=== PATIENT | male | born 1950 | race Caucasian/White ===

== ENCOUNTER → 2017-08-24 | Day surgery (SDC) | payer MEDICARE ==
[~2017-08-24] VITALS: Ht 175.3 cm; Wt 86.5 kg
[~2017-08-24] MED LIST: *RESP: ALBUTEROL 2.5 MG/3 ML NEB (PRN) PERIprocedural Use ONLY NEB ONE; *morphine SULFATE 8 MG/ML PERIprocedure ONLY ONE; ACETAMINOPHEN/HYDROcodone 325 MG/5 MG TAB PO PRN; BACITRACIN TOP OINT 15 GM TUBE ONE; CHLORHEXIDINE GLUCONATE 2 % 1 PACK (2 CLOTHS) TOPICAL PRN; DEXAMETHASONE SOD PHOS 4 MG/ML VIAL IV ONE; DO NOT ADM ANY ANTICOAGULANT DRUGS PRN; ESMOLOL HCL 100 MG/10 ML VIAL IV ONE; GLYCOPYRROLATE 1 MG/5 ML SYRINGE IV PUSH ONE; LACTATED RINGER'S 1000 ML IV PRN; LIDOCAINE 1%/EPINEPHrine 1:100,000 SOLN 20 ML VIAL ONE; LIDOCAINE HCL 1% PF 5 ML SYRINGE OTHER ONE; METOPROLOL TARTRATE 25 MG TAB PO PRN; MIDAZOLAM HCL 2 MG/2 ML VIAL IV ONE; NEOSTIGMINE 5 MG/5 ML SYRINGE IV PUSH ONE; ONDANSETRON HCL 4 MG/2 ML VIAL IV PUSH ONE; POVIDONE IODINE 5% (ANTISEPSIS KIT) 4 APPLICATIONS EACH NARE PRN; PROPOFOL 200 MG/20 ML AMP IV ONE; ROCURONIUM INJ 50 MG/5 ML SYRINGE IV PUSH ONE; SIMV20TA PO; SODIUM CHLOR 0.9% 1000 ML INJ 1,000 ML IV ONE; SODIUM CHLORID 0.9% 500 ML IV PRN; TRAM50TA PO; VALS1TAB64 PO
[2017-08-24 13:42] LABS: AUTOMATED NEUTROPHIL # 6.5 TH/MM3 (1.8-7.7); BASOPHIL # 0.1 TH/MM3 (0-0.2); BASOPHIL % 0.6 % (0.0-2.0); EOSINOPHIL # 0.1 TH/MM3 (0-0.4); HEMATOCRIT 37.1 % (39.0-51.0); HEMO FLAGS DIFF FINAL; LYMPH % 16.3 % (9.0-44.0); LYMPHOCYTE # 1.4 TH/MM3 (1.0-4.8); MEAN CELL VOLUME 79.8 FL (80.0-100.0); MEAN CORPUSCULAR HEMOGLOBIN 25.8 PG (27.0-34.0); MEAN CORPUSCULAR HGB CONC 32.4 % (32.0-36.0); MONO % 6.8 % (0.0-8.0); NEUT % 75.3 % (16.0-70.0); PLATELET COUNT 300 TH/MM3 (150-450); RED BLOOD COUNT 4.65 MIL/MM3 (4.50-5.90); RED CELL DISTRIBUTION WIDTH 16.4 % (11.6-17.2); WHITE BLOOD COUNT 8.6 TH/MM3 (4.0-11.0)
--- NOTE | 2017-08-24 15:18 | EKG ---
Date Performed: 08/24/2017 Time Performed: 13:19:45 PTAGE: 67 years EKG: Sinus rhythm NORMAL ECG NO PREVIOUS TRACING DOCTOR: Mckinley Oneil Interpretating Date/Time 08/24/2017 15:18:04
[2017-08-24 18:19] VITALS: BP 118/71; PULSE 66; RESP 16; TEMP 97.5; O2SAT 94
--- NOTE | 2017-08-25 07:14 | MP ---
cc: Charito MCNEIL CHET DO DATE OF SURGERY 08/24/2017 PREOPERATIVE DIAGNOSIS 1. Recently drained ischiorectal abscess 2. Rectal cancer PROCEDURE 1. Biopsy of recently drained ischiorectal abscess, skin and subcutaneous tissue. 2. Transanal excision of rectal cancer. ANESTHESIA General endotracheal SURGEON Dr. Mcneil WHIPPED TOPPING FINISHER Dr. Durán ESTIMATED BLOOD LOSS 150 cc OPERATIVE FINDINGS This patient was seen in the office for an 8-year history of a perirectal abscess previously drained by his physician, Dr. Ayden Maurice and finishing machine operator. The patient persisted in getting recurrent abscesses and was referred to me. On exam in the office, he appeared to have three left anterior fistulae all seeming to communicating and go up toward the rectal. On further exam in the office, he was found to have what appeared to be a left posterior rectal cancer. He underwent colonoscopy and also was found to have a large cecal polyp that could not be removed. At the time of colonoscopy, he underwent incision and drainage and excision of this rectal abscess, but no internal openings of these fistulas could be identified. The rectal cancer was biopsied at that time as well and that came back as adenocarcinoma, but also the biopsy of the abscess showed adenocarcinoma as well. For this reason, a rebiopsy of the abscess cavity was recommended and transanal excision of the rectal cancer. This was done today at surgery. OPERATIVE TECHNIQUE The patient was placed on the table in the supine position. After adequate general endotracheal anesthesia, the legs were placed in exaggerated lithotomy position and the perineum was prepped and draped in the usual manner. Without going into the rectum, the abscess cavity skin edges were excised with electrocautery as was the base of the abscess cavity. These specimens were sent for permanent section biopsy to rule out adenocarcinoma. Secondly, a fistula probe was placed in the base of the abscess cavity to try to find an internal opening into the rectum and none could easily be found. It appeared to track toward the anterior rectum, but also there seemed to be a track toward the posterior rectum in the ischiorectal fossa, but no internal openings could be seen. I believe the most likely source of the internal opening is anteriorly. Next, our attention was turned to the rectal cancer and it was really in the left lateral position slightly left posterior, but more left lateral. The submucosal tissue was injected with 10 cc of 1% Xylocaine with epinephrine and then the rectal cancer was excised full-thickness muscle under the carcinoma and about a centimeter of the mucosa circumferentially. In some areas, the mucosa was torn, but an adequate mucosal margin was taken all the way around the lesion. The remainder of the mucosa that was left was fulgurated all along the edges to ensure adequate margins. The base of the transanal excision site was fat and there was intermittent bleeding which was controlled with electrocautery. Once this was accomplished, the wound was closed finding the most distal and right-sided apex of the wound and the muscular and mucosal edges were approximated with interrupted 3-0 Vicryl [id number] sutures. We tracked up the transanal excision site fully approximating the excision site until the superior apex was identified. Once the wound was fully closed with interrupted 3-0 Vicryl [id number] sutures, proctosigmoidoscopy examination was done to ensure that the lumen was not sutured closed in anyway. The lumen was identified and was wide open. Hemostasis was excellent. A small amount of Monsel's solution was placed to the abscess wound and a dressing was applied to the abscess wound. Sponge, needle and instrument counts were poor as correct. Estimated blood loss was 150 cc. The patient tolerated the procedure well and left the operating room in good condition. MD SUMA Tom/GRACE /4:20 PM /6:59 AM
== END | disposition home or self-care (01) ==
LOC: HSDC 12:15
PROVIDERS: ATTEND Colon & Rectal Surgery
DX: C20 Malignant neoplasm of rectum (principal); K61.3 Ischiorectal abscess; I10 Essential (primary) hypertension
CPT/HCPCS: 00902; 45100; 45171; 85025; 88307; 93005; 94664; J1100; J2250; J2270; J2405; J2710; J3010; J7030; J7613; 88305

== ENCOUNTER → 2017-10-26 | Outpatient (CLI) | payer MEDICARE ==
[~2017-10-26] MED LIST changes: -*RESP: ALBUTEROL 2.5 MG/3 ML NEB (PRN) PERIprocedural Use ONLY NEB ONE; -*morphine SULFATE 8 MG/ML PERIprocedure ONLY ONE; -ACETAMINOPHEN/HYDROcodone 325 MG/5 MG TAB PO PRN; -BACITRACIN TOP OINT 15 GM TUBE ONE; -CHLORHEXIDINE GLUCONATE 2 % 1 PACK (2 CLOTHS) TOPICAL PRN; -DEXAMETHASONE SOD PHOS 4 MG/ML VIAL IV ONE; -DO NOT ADM ANY ANTICOAGULANT DRUGS PRN; -ESMOLOL HCL 100 MG/10 ML VIAL IV ONE; -GLYCOPYRROLATE 1 MG/5 ML SYRINGE IV PUSH ONE; +HYDR-3516 PO; -LACTATED RINGER'S 1000 ML IV PRN; +LIDO5%T TOPICAL; -LIDOCAINE 1%/EPINEPHrine 1:100,000 SOLN 20 ML VIAL ONE; -LIDOCAINE HCL 1% PF 5 ML SYRINGE OTHER ONE; -METOPROLOL TARTRATE 25 MG TAB PO PRN; -MIDAZOLAM HCL 2 MG/2 ML VIAL IV ONE; -NEOSTIGMINE 5 MG/5 ML SYRINGE IV PUSH ONE; -ONDANSETRON HCL 4 MG/2 ML VIAL IV PUSH ONE; -POVIDONE IODINE 5% (ANTISEPSIS KIT) 4 APPLICATIONS EACH NARE PRN; -PROPOFOL 200 MG/20 ML AMP IV ONE; -ROCURONIUM INJ 50 MG/5 ML SYRINGE IV PUSH ONE; -SODIUM CHLOR 0.9% 1000 ML INJ 1,000 ML IV ONE; -SODIUM CHLORID 0.9% 500 ML IV PRN
[2017-10-26 09:55] LABS: AUTOMATED NEUTROPHIL # 6.4 TH/MM3 (1.8-7.7); BASOPHIL # 0.1 TH/MM3 (0-0.2); BASOPHIL % 0.7 % (0.0-2.0); EOSINOPHIL # 0.2 TH/MM3 (0-0.4); EOSINOPHIL % 1.8 % (0.0-4.0); HEMATOCRIT 41.3 % (39.0-51.0); LYMPHOCYTE # 2.2 TH/MM3 (1.0-4.8); MEAN CELL VOLUME 76.3 FL (80.0-100.0); MEAN CORPUSCULAR HEMOGLOBIN 24.1 PG (27.0-34.0); MEAN CORPUSCULAR HGB CONC 31.6 % (32.0-36.0); MEAN PLATELET VOLUME 7.9 FL (7.0-11.0); MONO % 6.4 % (0.0-8.0); MONOCYTE # 0.6 TH/MM3 (0-0.9); NEUT % 68.1 % (16.0-70.0); PLATELET COUNT 272 TH/MM3 (150-450); RED BLOOD COUNT 5.41 MIL/MM3 (4.50-5.90); RED CELL DISTRIBUTION WIDTH 17.6 % (11.6-17.2); WHITE BLOOD COUNT 9.4 TH/MM3 (4.0-11.0)
[2017-10-26 10:16] LABS: ALBUMIN 3.6 GM/DL (3.4-5.0); AST (GOT) 16 U/L (15-37); BICARBONATE 26.5 MEQ/L (21.0-32.0); BLOOD UREA NITROGEN 19 MG/DL (7-18); CALCIUM 9.6 MG/DL (8.5-10.1); CHLORIDE 107 MEQ/L (98-107); GLOMERULAR FILTRATION RATE 66 ML/MIN (>89); GLUCOSE,FASTING 101 MG/DL (74-99); SODIUM (NA) 140 MEQ/L (136-145)
[2017-10-26 10:17] LABS: ALT (GPT) 18 U/L (12-78)
[2017-10-26 10:20] LABS: ALKALINE PHOSPHATASE 99 U/L (45-117); TOTAL BILIRUBIN ADULT 0.6 MG/DL (0.2-1.0); TOTAL PROTEIN 7.2 GM/DL (6.4-8.2)
--- NOTE | 2017-10-26 10:21 | RADRPT ---
EXAM DATE/TIME: 10/26/2017 10:07 [facility] COMPARISON: No previous studies available for comparison. INDICATIONS : Evaluate for pneumonia, pneumothorax or communicable disease. Pre op fistulotomy. MEDICAL HISTORY : Hypertension. Carcinoma, bladder. Carcinoma, rectal. SURGICAL HISTORY : Inguinal hernia repair. bladder removed ENCOUNTER: Initial ACUITY: 1 day PAIN SCORE: 0/10 LOCATION: Bilateral chest FINDINGS: The heart is normal in size. The mediastinal contours are within normal limits. There are moderate CO PD changes. There are fibrotic changes within the lung bases. No suspicious mass lesions are identifi ed. The visualized bony structures are grossly intact. CONCLUSION: 1. COPD changes. Rg Garcia MD on October 26, 2017 at 10:19 Board Certified Radiologist. This report was verified electronically.
[2017-10-26 12:44] LABS: BACTERIA, URINE MANY /hpf; BILIRUBIN, URINE NEG (NEG); BLOOD, URINE TRACE (NEG); GLUCOSE,URINE NEG (NEG); KETONE, URINE NEG (NEG); MUCUS URINE FEW /lpf (OCC); NITRITE,URINE POS (NEG); PH, URINE 5.5 (5.0-8.5); URINE COLOR YELLOW (YELLW/STRAW); URINE LEUKOCYTE ESTERASE SMALL (NEG); WHITE BLOOD CELL CLUMPS MOD
== END ==
LOC: CPRE 08:56
PROVIDERS: ATTEND Colon & Rectal Surgery
DX: Z01.812 Encounter for preprocedural laboratory examination (principal); Z01.818 Encounter for other preprocedural examination; K60.3 Anal fistula; B96.20 Unspecified Escherichia coli [E. coli] as the cause of diseases classified elsewhere
CPT/HCPCS: 36415; 71046; 80053; 81001; 85025; 87077; 87086; 87186

== ENCOUNTER 2017-11-02 12:29 | Day surgery (SDC) | payer MEDICARE ==
[~2017-11-02 12:29] MED LIST changes: -HYDR-3516 PO; -LIDO5%T TOPICAL; +LIDOCAINE HCL 1% PF 5 ML SYRINGE OTHER ONE; +PHENYLEPH/NS 1000 MCG/10 ML SYR IV ONE; +PROPOFOL 200 MG/20 ML AMP IV ONE; +ROCURONIUM INJ 50 MG/5 ML SYRINGE IV PUSH ONE; -TRAM50TA PO
[2017-11-02] MEDS ORDERED: SODIUM CHLORID 0.9% 500 ML IV PRN (13:30)
[2017-11-02] MEDS ORDERED: INSULIN HUMAN REGULAR 1,000 UNITS/10 ML VIAL SQ PRN (13:30)
[2017-11-02] MEDS ORDERED: POVIDONE IODINE 5% (ANTISEPSIS KIT) 4 APPLICATIONS EACH NARE PRN (13:30)
[2017-11-02] MEDS ORDERED: METOPROLOL TARTRATE 25 MG TAB PO PRN (13:30)
[2017-11-02] MEDS ORDERED: LACTATED RINGER'S 1000 ML IV PRN (13:30)
[2017-11-02] MEDS ORDERED: CHLORHEXIDINE GLUCONATE 2 % 1 PACK (2 CLOTHS) TOPICAL PRN (13:30)
[2017-11-02] MEDS ORDERED: LIDOCAINE 1%/EPINEPHrine 1:100,000 SOLN 30 ML VIAL ONE (16:50)
[2017-11-02] MEDS ORDERED: DO NOT ADM ANY ANTICOAGULANT DRUGS PRN (17:20)
[2017-11-02] MEDS ORDERED: MIDAZOLAM HCL 2 MG/2 ML VIAL ONE (17:31)
[2017-11-02] MEDS ORDERED: LIDO5%T TOPICAL (17:51)
[2017-11-02] MEDS ORDERED: HYDR-3516 PO (17:51)
[2017-11-02 18:00] VITALS: TEMP 97.6
[2017-11-02 18:07] VITALS: BP 139/76; PULSE 77; RESP 19; O2SAT 94
[2017-11-02] MEDS ORDERED: ACETAMINOPHEN/HYDROcodone 325 MG/5 MG TAB PO PRN (19:00)
[2017-11-02] MEDS ORDERED: ONDANSETRON HCL 4 MG/2 ML VIAL IV PUSH PRN (19:00)
--- NOTE | 2017-11-03 13:25 | MP ---
cc: MELINDA YEBOAH,GENARO MINOR,JANICE MCNEIL,HEATHER Pagan M.D. 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 PROCEDURE Left anterior fistulotomy and debridement of fistula tract. ANESTHESIA LMA and local 0.5% Xylocaine with epinephrine, 50 cc infiltrated locally. SURGEON Dr. Mcneil. CLEANING MANAGER SURGEON Dr. Durán. ESTIMATED BLOOD LOSS Minimal. OPERATIVE FINDINGS This patient has a complex case. He was referred to me initially by Dr. Janice Minor with multiple left anterior perianal fistulas. These have been present about seven or eight years and had been incised and drained elsewhere several times but continued to recur, and it was felt that he had a fistula in ano causing this. On exam in my office he was found to have a rectal cancer on the same side of his rectum and at that time the fistulas appeared benign, cryptogenic in nature. Excision and biopsy of the external portion of the fistula at that time revealed adenocarcinoma metastatic to the fistula tract. We then did a transanal excision of the rectal cancer and that was done about 6 weeks ago and had healed well. We then referred him to Dr. Marx and Dr. Melinda Yeboah for radiation therapy and chemotherapy; however, on preoperative MRI there was a continued internal opening of the fistula that was seen at around the dentate line anteriorly. This fistula internal opening could not be located prior to this. At surgery today the internal opening was located from the external opening and fistulotomy was done encompassing the subcutaneous external sphincter and a portion of the internal sphincter, but the majority of the sphincter was not incised. In the base of the fistula tract was frondular material that appeared to be adenocarcinoma. For this reason the fistula tract was excised and all of this frondular material was excised including the indurated skin at the external opening. This created a probably 5 cm wide defect in the skin externally but all of the carcinoma appeared to be excised. The previous rectal carcinoma in the lower rectum which was excised appeared totally healed without any evidence of recurrence. OPERATIVE TECHNIQUE The patient was placed on the table in the supine position, given LMA anesthesia and then the legs were placed in extreme lithotomy position. The area was prepped and draped in the usual manner and a Fuentes bivalve retractor was inserted into the anal canal. A probe was placed in the external opening and came out easily to the internal opening in the left anterior position of the anal canal directly. Fistulotomy was done excising the indurated skin and granulation tissue and probable adenocarcinoma which was metastatic from his previous cancer. The fistula tract contained a lot of frondular material and this was all excised as well until all that was debrided. Hemostasis was maintained throughout with electrocautery. The internal hemorrhoid in the left lateral had been incised and for this reason a 2-0 chromic suture was placed at the uppermost portion of that incision which included the distal portion of the hemorrhoid and the mucosa was sutured down to the anoderm. The remainder of the wound was left open and then Monsel's solution was placed. The wound had been previously injected with about 50 cc of 0.5% Xylocaine. At the termination of the procedure hemostasis was excellent. A dressing was applied. Sponge, needle and instrument counts were reported as correct. The estimated blood loss was minimal. The patient tolerated the procedure well and left the operating room in good condition. MD SUMA Tom/REINIER /5:26 PM /1:01 PM
== END 2017-11-02 18:14 | disposition home or self-care (01) ==
LOC: HSDC 12:29
PROVIDERS: ATTEND Colon & Rectal Surgery
DX: K60.3 Anal fistula (principal); C20 Malignant neoplasm of rectum; K64.8 Other hemorrhoids; I10 Essential (primary) hypertension; Z85.51 Personal history of malignant neoplasm of bladder; Z87.891 Personal history of nicotine dependence
CPT/HCPCS: 00902; 46275; 88305; J2250; J2370; J3010; J7120